=== PATIENT | male | born 1955 | race Caucasian/White ===

== ENCOUNTER → 2020-12-25 | Outpatient (CLI) | payer MEDICARE, OTHER ==
[2020-12-25 12:28] LABS: HEMOGLOBIN 15.7 gm/dl (14.0-17.5); RED BLOOD COUNT 5.16 M/UL (4.20-5.50); WHITE BLOOD COUNT 7.7 K/UL (4.5-11.0)
[2020-12-25 12:45] LABS: BUN/CREATININE RATIO 13 (0-10)
== END ==
LOC: LAB 11:36
PROVIDERS: Internal Medicine Cardiovascular Disease
DX: I48.92 Unspecified atrial flutter (principal); I10 Essential (primary) hypertension
CPT/HCPCS: 36415; 71046; 80048; 85025; 85610

== ENCOUNTER 2020-12-29 09:39 | Outpatient (CLI) | payer MEDICARE, OTHER ==
[~2020-12-29] VITALS: Ht 182.9 cm; Wt 163.3 kg
[2020-12-29] MEDS ORDERED: CARTIA XT300 MG PO (10:16)
[2020-12-29] MEDS ORDERED: LIPITOR40 MG PO (10:16)
[2020-12-29] MEDS ORDERED: CELEXA10 MG PO (10:16)
[2020-12-29] MEDS ORDERED: NEURONTIN300 MG PO (10:17)
[2020-12-29] MEDS ORDERED: CYCLOBENZAPRINE10 MG PO (10:17)
[2020-12-29] MEDS ORDERED: KLONOPIN1 MG PO (10:18)
[2020-12-29] MEDS ORDERED: METOPROLOL TART25 MG PO (10:18)
[2020-12-29] MEDS ORDERED: PEPCID AC20 MG PO (10:18)
[2020-12-29] MEDS ORDERED: WARFARIN SODIUM5 MG PO (10:19)
[2020-12-29] MEDS ORDERED: ST. JOSEPH ASPI81 M1 PO (10:44)
[2020-12-29] MEDS ORDERED: WARFARIN SODIUM10 MG PO (16:11)
[2020-12-30] MEDS ORDERED: LOW DOSE ASPIRI81 MG PO (13:31)
== END 2020-12-30 13:55 | disposition home or self-care (01) ==
LOC: CATH 09:39 → MED SURG 4 15:26 → CATH 12-30 13:55
DX: I48.3 Typical atrial flutter (principal); E66.01 Morbid (severe) obesity due to excess calories; Z86.718 Personal history of other venous thrombosis and embolism; I10 Essential (primary) hypertension; F17.220 Nicotine dependence, chewing tobacco, uncomplicated; I27.82 Chronic pulmonary embolism; D68.62 Lupus anticoagulant syndrome; Z88.5 Allergy status to narcotic agent; Z79.01 Long term (current) use of anticoagulants; E78.5 Hyperlipidemia, unspecified
CPT/HCPCS: 93005; 93609; 93620; 99152; 99153; C1730; C1733; C1766; J1644; J2250; J3010; J7040